=== PATIENT | male | born 1995 | race Caucasian/White ===

== ENCOUNTER → 2025-05-01 | Day surgery (SDC) | payer MEDICAID ==
[~2025-05-01] VITALS: Ht 185.4 cm; Wt 123.8 kg
[~2025-05-01] MED LIST: ACETAMINOPHEN 1000MG/100ML 100 ML IV ONE; BUPIVACAINE HCL/PF 0.5% (5MG/ML) 10ML ONE; CEFAZOLIN SODIUM 1000MG/VIAL ONE; FAMOTIDINE 20MG/2ML VIAL IV ONE; FENTANYL CITRATE/PF 50MCG/ML 5ML VIAL ONE; HYDR-4001 PO; HYDROMORPHONE HCL/PF 1MG/ML INJ ONE; LACTATED RINGERS 1,000 ML IV SCH; METOCLOPRAMIDE HCL 10MG/2ML VIAL ONE; MIDAZOLAM HCL 2 MG/2 ML VIAL ONE; ONDANSETRON HCL 4MG/2ML INJ ONE; PROPOFOL 200MG/20ML VIAL IV ONE; ROCURONIUM BROMIDE 10MG/ML VIAL 5ML IV ONE
[2025-05-01] MEDS: HYDROMORPHONE HCL/PF 1MG/ML INJ IV PRN (10:19)
[2025-05-01] MEDS: ONDANSETRON HCL 4MG/2ML INJ IV PRN (10:43)
[2025-05-01 11:35] VITALS: BP 136/86; PULSE 79; RESP 20
[2025-05-01] MEDS: ACETAMINOPHEN WITH CODEINE 300/30MG TABLET PO SCH (11:35)
== END | disposition home or self-care (01) ==
LOC: OR 06:36
PROVIDERS: ATTEND Surgery
DX: K80.10 Calculus of gallbladder with chronic cholecystitis without obstruction (principal); Z87.891 Personal history of nicotine dependence; Z79.899 Other long term (current) drug therapy; Z98.890 Other specified postprocedural states
CPT/HCPCS: 47562; 88304; J3010; J0665; J0690; J1308; J2765; J2250; J2405; J2704; J3490; J1171; J7030; A4217; J0131